=== PATIENT | female | born 1965 | race Caucasian/White ===

== ENCOUNTER 2016-06-14 08:40 | Inpatient (IN) | payer OTHER ==
[~2016-06-14] VITALS: Ht 162.6 cm; Wt 72.6 kg
[2016-06-14] VITALS (9 sets, daily range): BP systolic 93–116; BP diastolic 46–78
[2016-06-14] MEDS ORDERED: Bacitracin 50000 Units Vial ONE (10:17)
--- NOTE | 2016-06-14 12:02 | Diagnostic Imaging Report ---
Indications: hip pain Findings: Two views of the left hip were obtained. There is deformity of the left femoral head with subchondral collapse. This may be on the basis of underlying AVM. There is no femoral neck fracture or malalignment. Impression: Deformity of the left femoral head probably on the basis of AVM or trauma.
[2016-06-14] MEDS ORDERED: MOVANTIK25 MG PO (12:06)
[2016-06-14] MEDS ORDERED: OXYCODONE-ACET1 EAC3 ORAL (12:06)
[2016-06-14] MEDS ORDERED: ZIPSOR25 MG ORAL (12:08)
[2016-06-14] MEDS ORDERED: Morphine Sulfate PF 10 ML ONE (12:27)
[2016-06-14] MEDS ORDERED: Ropivacaine 5mg/ml Vial 20ml INJ ONE (12:28)
[2016-06-14] MEDS ORDERED: LYRICA100 MG ORAL (12:28)
[2016-06-14] MEDS ORDERED: Bupivacaine 0.5% Inj 30 ml vial INJ ONE (12:28)
[2016-06-14] MEDS ORDERED: CYMBALTA60 MG ORAL (12:29)
[2016-06-14] MEDS ORDERED: METAXALONE800 MG PO (12:30)
[2016-06-14] MEDS ORDERED: [UNRECOGNIZED DRUG - OTHER] PO (12:31)
[2016-06-14] MEDS ORDERED: LANSOPRAZOLE15 MG ORAL (12:36)
[2016-06-14] MEDS ORDERED: MELATONIN2.5 MG ORAL (12:37)
[2016-06-14] MEDS ORDERED: LR 1000ml ONE (12:50)
[2016-06-14] MEDS ORDERED: NS Irrig 1000ml ONE (12:50)
[2016-06-14] MEDS ORDERED: Succinylcholine 20mg/ml 10ml vial ONE (12:50)
[2016-06-14] MEDS ORDERED: Dexamethasone 4mg/ml vial ONE (12:50)
[2016-06-14] MEDS ORDERED: Propofol 10mg/ml 20ml IV ONE ×2 (12:50)
[2016-06-14] MEDS ORDERED: Sterile Water Irrig 1000ml IRRIG ONE (12:50)
[2016-06-14] MEDS ORDERED: Metoprolol 5mg/5ml Inj ONE (12:50)
[2016-06-14] MEDS ORDERED: Alfentanil 2ml Inj ONE (12:50)
[2016-06-14] MEDS ORDERED: Midazolam 2mg/2ml Inj ONE (12:50)
--- NOTE | 2016-06-14 12:56 | Anethesia Preoperative Eval ---
Anesthesia Pre-op PMH/ROS General Date of Evaluation: Jun 14, 2016 Time of Evaluation: 12:51 Anesthesiologist: Janee ASA Score: ASA 2 Mallampati Score Class I : Soft palate, uvula, fauces, pillars visible Class II: Soft palate, uvula, fauces visible Class III: Soft palate, base of uvula visible Class IV: Only hard plate visible Mallampati Classification: Class II Surgeon: Irving Diagnosis: L Hip AVN Surgical Procedure: L Total Hip Replacement Anesthesia History: none Family History: no anesthesia problems Allergies: Coded Allergies: ADHESIVE TAPE (Verified Allergy, Intermediate, itch; redness, 06/14/16) MEPERIDINE (Verified Allergy, Intermediate, rash; itch, 06/14/16) Medications: see eMAR Past Medical History Cardiovascular: Reports: other - MVP Gastrointestinal/Genitourinary: Reports: GERD Neurologic/Psychiatric: Reports: depression/anxiety Musculoskeletal/Integumentary: Reports: other - AVN, L Hip PSxH Narrative: Andry WILSON Arthroscopy Anesthesia Pre-op Phys. Exam Physician Exam Last Vital Signs Date Time Temp Pulse Resp B/P Pulse Ox O2 Delivery O2 Flow Rate FiO2 06/14/16 11:40 97.8 77 18 112/78 100 Room Air Constitutional: NAD Neurologic: CN 2-12 intact Cardiovascular: RRR Respiratory: CTA Gastrointestinal: S/NT/ND Airway Exam Mallampati Score: Class II MO: full ROM: full Teeth: intact Anesthesia Pre-op A/P Labs Urine Test Test 06/14/16 10:45 Urine HCG, Qualitative Negative Risk Assessment & Plan Assessment: ASA 2 Plan: GA, Spinal, LPB, BIS Status Change Before Surgery: No Pre-Antibiotics Dru Grams Ancef IV Given Within 1 Hr of Incision: Yes Time Given: 12:18 Carter Weller MD Jun 14, 2016 12:56
--- NOTE | 2016-06-14 12:57 | Immediate Post-Op Evaluation ---
Immediate Post-Op Evalulation Immediate Post-Op Evalulation Procedure: L THR Date of Evaluation: Jun 14, 2016 Time of Evaluation: 15:12 IV Fluids: 900 LR Blood Products: 0 Estimated Blood Loss: 25 Urinary Output: 50 Blood Pressure Systolic: 98 Blood Pressure Diastolic: 61 Pulse Rate: 90 Respiratory Rate: 16 O2 Sat by Pulse Oximetry: 97 Temperature (Fahrenheit): 98.2 Pain Score (1-10): 0 Nausea: No Vomiting: No Complications 0 Patient Status: awake, reacts, patent, none Hydration Status: adequate Dru Grams Ancef IV Given Within 1 Hr of Incision: Yes Time Given: 12:18 Carter Weller MD Jun 14, 2016 12:57
[2016-06-14] MEDS ORDERED: LR 1000ml 1,000 ML IVLG SCH (12:59)
[2016-06-14] MEDS ORDERED: Atropine Inj 1mg/10ml Syr IV PRN (13:00)
[2016-06-14] MEDS ORDERED: Midazolam 2mg/2ml Inj IVP PRN (13:00)
[2016-06-14] MEDS ORDERED: Metoclopramide 10mg/2ml Inj IVP PRN (13:00)
[2016-06-14] MEDS ORDERED: Norco 7.5mg/325mg tab ORAL PRN (13:00)
[2016-06-14] MEDS ORDERED: Hydromorphone 0.5mg/0.5ml inj IVP PRN (13:00)
[2016-06-14] MEDS ORDERED: Ketorolac 60mg Inj IV PRN (13:00)
[2016-06-14] MEDS ORDERED: Ketorolac 30mg Inj IV PRN (13:00)
[2016-06-14] MEDS ORDERED: Labetalol 5mg/ml 20ml vial IV PRN (13:00)
[2016-06-14] MEDS ORDERED: Norco 5mg/325mg tab ORAL PRN (13:00)
[2016-06-14] MEDS ORDERED: LORazepam Inj 2mg/ml 1ml IV PRN (13:00)
[2016-06-14] MEDS ORDERED: DiphenhydrAMINE 50mg/ml Inj IVP PRN (13:00)
[2016-06-14] MEDS ORDERED: NS Irrig 1000ml IRRIG ONE (13:00)
[2016-06-14] MEDS ORDERED: Oxycodone/Acetaminophen 5-325 ORAL PRN (13:00)
--- NOTE | 2016-06-14 13:02 | Pre-Procedure Note/Attestation ---
Pre-Procedure Note/Attestation Complete Prior to Procedure Planned Procedure: left Procedure Narrative: left hip bipolar versus total hip replacement Indications for Procedure Pre-Operative Diagnosis: left hip anv Attestation I attest that I discussed the nature of the procedure; its benefits; risks and complications; and alternatives (and the risks and benefits of such alternatives ), prior to the procedure, with the patient (or the patient's legal career services representative). I attest that, if there was a reasonable possibility of needing a blood transfusion, the patient (or the patient's legal career services representative) was given the [facility] standardized written summary, pursuant to the Richard Wilmer Blood Safety Act ([place] Health and Safety Code # 1645, as amended). I attest that I re-evaluated the patient just prior to the surgery and that there has been no change in the patient's H&P, except as documented below: LIT ARGUETA Jun 14, 2016 13:02
[2016-06-14] MEDS ORDERED: Morphine Sulfate 4mg/ml Inj IVP PRN (13:15)
[2016-06-14] MEDS ORDERED: Morphine Sulfate 2mg/ml Inj IVP PRN (13:15)
[2016-06-14] MEDS ORDERED: Tranexamic Acid 1,000 MG in NS 65 ML IVPB ONE (13:30)
[2016-06-14] MEDS ORDERED: D5 1/2NS w/KCl 20mEq 1,000 ML IV SCH (19:00)
[2016-06-14] MEDS: ceFAZolin sod 1 GM in D5W 55 ML IV SCH (20:48)
[2016-06-14] MEDS: Morphine Sulfate 2mg/ml Inj IVP PRN (20:50)
[2016-06-15] MEDS: Morphine Sulfate 2mg/ml Inj IVP PRN ×2 (00:09→07:07)
[2016-06-15 00:25] VITALS: BP 106/71
[2016-06-15 04:00] VITALS: BP 93/62
[2016-06-15] MEDS: ceFAZolin sod 1 GM in D5W 55 ML IV SCH (05:00)
[2016-06-15 06:11] LABS: MEAN CORPUSCULAR HEMOGLOBIN 31.8 PG (27.0-31.0); MEAN CORPUSCULAR HGB CONC 33.2 G/DL (32.0-36.0); MEAN CORPUSCULAR VOLUME 96 FL (80-99); MEAN PLATELET VOLUME 9.2 FL (6.5-10.1); PLATELET COUNT 246 K/UL (150-450); RED BLOOD COUNT 3.79 M/UL (4.20-5.40); RED CELL DISTRIBUTION WIDTH 11.9 % (11.6-14.8); WHITE BLOOD COUNT 11.2 K/UL (4.8-10.8)
[2016-06-15 06:59] LABS: ANION GAP 15 (5-15); CALCIUM 9.3 mg/dL (8.6-10.2); CARBON DIOXIDE 25 mEQ/L (20-30); CHLORIDE 99 mEQ/L (98-107); CREATININE 0.8 mg/dL (0.5-0.9); GLOMERULAR FILTRATION RATE > 60 mL/min (>60); HEMOLYSIS 8; POTASSIUM 4.4 mEQ/L (3.4-4.9); SODIUM 139 mEQ/L (135-145)
--- NOTE | 2016-06-15 07:48 | 48 Hour Post Anesthesia Eval ---
Post Anesthesia Evaluation Procedure: L THR Date of Evaluation: Jun 15, 2016 Time of Evaluation: 07:01 Blood Pressure Systolic: 92 0: 61 Pulse Rate: 83 Respiratory Rate: 18 Temperature (Fahrenheit): 97.5 O2 Sat by Pulse Oximetry: 96 Airway: patent Nausea: No Vomiting: No Pain Intensity: 1 Hydration Status: adequate Cardiopulmonary Status: Stable Mental Status/LOC: patient returned to baseline Follow-up Care/Observations: 0 Post-Anesthesia Complications: 0 Follow-up care needed: N/A Carter Weller MD Jun 15, 2016 07:48
[2016-06-15 08:06] VITALS: BP 94/65
--- NOTE | 2016-06-15 08:26 | Diagnostic Imaging Report ---
Indication: pain Findings: Single AP view of the pelvis was performed. Lower pelvic radiograph showing left hip replacement. This appears to be a bipolar hemiarthroplasty. No issues with positioning of the hardware identified. No fracture identified. Tyler catheter noted. Impression: Status post left hip replacement.
[2016-06-15] MEDS: Enoxaparin 40mg Inj SUBQ SCH (08:43)
[2016-06-15] MEDS: Norco 7.5mg/325mg tab ORAL PRN ×2 (15:45→20:47)
[2016-06-15] MEDS ORDERED: Influenza Virus Vaccine 0.5ml IM ONE (16:00)
[2016-06-15 16:38] VITALS: BP 126/75
[2016-06-15 20:00] VITALS: BP 108/63
[2016-06-16] MEDS: Norco 7.5mg/325mg tab ORAL PRN ×6 (00:59→20:58)
[2016-06-16 01:00] VITALS: BP 115/69
[2016-06-16 04:00] VITALS: BP 115/70
[2016-06-16 05:25] LABS: BASOPHILS % (AUTO) 0.6 % (0.0-2.0); EOSINOPHILS % (AUTO) 0.3 % (0.0-3.0); LYMPHOCYTES % (AUTO) 29.3 % (20.0-45.0); MEAN CORPUSCULAR HEMOGLOBIN 31.9 PG (27.0-31.0); MEAN CORPUSCULAR HGB CONC 33.6 G/DL (32.0-36.0); MEAN CORPUSCULAR VOLUME 95 FL (80-99); MEAN PLATELET VOLUME 9.1 FL (6.5-10.1); MONOCYTES % (AUTO) 7.6 % (1.0-10.0); NEUTROPHILS % (AUTO) 62.1 % (45.0-75.0); PLATELET COUNT 219 K/UL (150-450); RED BLOOD COUNT 3.59 M/UL (4.20-5.40); RED CELL DISTRIBUTION WIDTH 11.8 % (11.6-14.8); WHITE BLOOD COUNT 8.6 K/UL (4.8-10.8)
[2016-06-16 05:51] LABS: ANION GAP 13 (5-15); CALCIUM 8.8 mg/dL (8.6-10.2); CARBON DIOXIDE 25 mEQ/L (20-30); CHLORIDE 105 mEQ/L (98-107); CREATININE 0.9 mg/dL (0.5-0.9); GLOMERULAR FILTRATION RATE > 60 mL/min (>60); HEMOLYSIS 5; POTASSIUM 3.9 mEQ/L (3.4-4.9); SODIUM 143 mEQ/L (135-145)
[2016-06-16 08:09] VITALS: BP 107/67
[2016-06-16] MEDS: Enoxaparin 40mg Inj SUBQ SCH (08:48)
--- NOTE | 2016-06-16 09:26 | General Progress Note ---
Progress Note Progress Note doing great OLD HIP PAIN gone explained did a partial as she had good cartilage explain if every needs conversion to total simple Hgb stable nruovascular intact pt pleased NVI continue LIT Suazo Jun 16, 2016 09:26
[2016-06-16 12:00] VITALS: BP 109/67
[2016-06-16 16:00] VITALS: BP 121/79
--- NOTE | 2016-06-16 16:49 | General Progress Note ---
Assessment/Plan Assessment/Plan hip surgery hip pain PLAN 1. incentive spirometry 2. Lovenox 3. PT evaluation and therapy 4. Hydration 5. Pain management 6. discharge once stable with outpatient follow up Subjective Allergies: Coded Allergies: ADHESIVE TAPE (Verified Allergy, Intermediate, itch; redness, 06/14/16) MEPERIDINE (Verified Allergy, Intermediate, rash; itch, 06/14/16) Subjective asked to follow up post op Objective Last 24 Hour Vital Signs Date Time Temp Pulse Resp B/P Pulse Ox O2 Delivery O2 Flow Rate FiO2 06/16/16 16:00 99.0 91 20 121/79 100 Room Air 06/16/16 14:10 98.2 06/16/16 12:00 98.2 93 19 109/67 97 Room Air 06/16/16 08:09 98.1 86 20 107/67 94 Room Air 06/16/16 04:00 98.2 84 18 115/70 95 Room Air 06/16/16 01:00 99.0 86 18 115/69 97 Room Air 06/15/16 20:00 98.4 93 18 108/63 98 Room Air Intake and Output 06/15/16 06/16/16 19:00 07:00 Intake Total 480 ml 480 ml Output Total 600 ml 250 ml Balance -120 ml 230 ml Intake Oral 480 ml 480 ml Output Urine Total 600 ml 250 ml # Voids 2 2 Laboratory Tests 06/16/16 04:20: White Blood Count 8.6, Red Blood Count 3.59L, Hemoglobin 11.5L, Hematocrit 34.1L , Mean Corpuscular Volume 95, Mean Corpuscular Hemoglobin 31.9H, Mean Corpuscular Hemoglobin Concent 33.6, Red Cell Distribution Width 11.8, Platelet Count 219, Mean Platelet Volume 9.1, Neutrophils (%) (Auto) 62.1, Lymphocytes (% ) (Auto) 29.3, Monocytes (%) (Auto) 7.6, Eosinophils (%) (Auto) 0.3, Basophils ( %) (Auto) 0.6, Sodium Level 143, Potassium Level 3.9, Chloride Level 105, Carbon Dioxide Level 25, Anion Gap 13, Blood Urea Nitrogen 10, Creatinine 0.9, Estimat Glomerular Filtration Rate > 60, Glucose Level 100, Calcium Level 8.8 Height (Feet): 5 Height (Inches): 4.00 Weight (Pounds): 160 Objective WDWN NAD clear breath sounds bilaterally without rhonchi or wheeze [id number] without MRG NABS nontender no HSM no CCE nonfocal MARIZA GOODMAN Jun 16, 2016 16:49
[2016-06-16 20:00] VITALS: BP 112/75
[2016-06-17] VITALS: BP 112/73
[2016-06-17] MEDS: Norco 7.5mg/325mg tab ORAL PRN ×3 (01:24→10:57)
[2016-06-17 04:00] VITALS: BP 123/88
[2016-06-17 07:54] LABS: BASOPHILS % (AUTO) 1.2 % (0.0-2.0); EOSINOPHILS % (AUTO) 0.7 % (0.0-3.0); LYMPHOCYTES % (AUTO) 31.2 % (20.0-45.0); MEAN CORPUSCULAR HEMOGLOBIN 31.8 PG (27.0-31.0); MEAN CORPUSCULAR HGB CONC 33.2 G/DL (32.0-36.0); MEAN CORPUSCULAR VOLUME 96 FL (80-99); MEAN PLATELET VOLUME 8.4 FL (6.5-10.1); MONOCYTES % (AUTO) 7.5 % (1.0-10.0); NEUTROPHILS % (AUTO) 59.4 % (45.0-75.0); PLATELET COUNT 248 K/UL (150-450); RED BLOOD COUNT 4.06 M/UL (4.20-5.40); WHITE BLOOD COUNT 7.5 K/UL (4.8-10.8)
[2016-06-17 08:21] VITALS: BP 126/80
[2016-06-17 08:22] LABS: ANION GAP 17 (5-15); CALCIUM 9.7 mg/dL (8.6-10.2); CARBON DIOXIDE 25 mEQ/L (20-30); CHLORIDE 102 mEQ/L (98-107); CREATININE 0.8 mg/dL (0.5-0.9); GLOMERULAR FILTRATION RATE > 60 mL/min (>60); HEMOLYSIS 1; POTASSIUM 3.6 mEQ/L (3.4-4.9); SODIUM 144 mEQ/L (135-145)
[2016-06-17] MEDS: Enoxaparin 40mg Inj SUBQ SCH (08:23)
--- NOTE | 2016-06-17 08:55 | General Progress Note ---
Assessment/Plan Assessment/Plan hip surgery hip pain PLAN 1. incentive spirometry 2. Xarelto 10mg x 14 days 3. PT evaluation and therapy 4. PO norco on dc 5. Pain management 6. discharge home Subjective Allergies: Coded Allergies: ADHESIVE TAPE (Verified Allergy, Intermediate, itch; redness, 06/14/16) MEPERIDINE (Verified Allergy, Intermediate, rash; itch, 06/14/16) Subjective stable and would like to go home Objective Last 24 Hour Vital Signs Date Time Temp Pulse Resp B/P Pulse Ox O2 Delivery O2 Flow Rate FiO2 06/17/16 08:23 98.0 06/17/16 08:21 98.0 90 20 126/80 98 Room Air 06/17/16 04:00 98.8 96 20 123/88 99 Room Air 06/17/16 00:00 99.0 84 20 112/73 99 Room Air 06/16/16 20:00 98.6 88 20 112/75 98 Room Air 06/16/16 16:00 99.0 91 20 121/79 100 Room Air 06/16/16 12:00 98.2 93 19 109/67 97 Room Air Intake and Output 06/16/16 06/17/16 19:00 07:00 Intake Total 720 ml 480 ml Balance 720 ml 480 ml Intake Oral 720 ml 480 ml # Voids 1 3 Laboratory Tests 06/17/16 07:10: White Blood Count 7.5, Red Blood Count 4.06L, Hemoglobin 12.9, Hematocrit 38.9, Mean Corpuscular Volume 96, Mean Corpuscular Hemoglobin 31.8H, Mean Corpuscular Hemoglobin Concent 33.2, Red Cell Distribution Width 12.0, Platelet Count 248, Mean Platelet Volume 8.4, Neutrophils (%) (Auto) 59.4, Lymphocytes (%) (Auto) 31.2, Monocytes (%) (Auto) 7.5, Eosinophils (%) (Auto) 0.7, Basophils (%) (Auto ) 1.2, Sodium Level 144, Potassium Level 3.6, Chloride Level 102, Carbon Dioxide Level 25, Anion Gap 17H, Blood Urea Nitrogen 7, Creatinine 0.8, Estimat Glomerular Filtration Rate > 60, Glucose Level 99, Calcium Level 9.7 Height (Feet): 5 Height (Inches): 4.00 Weight (Pounds): 160 Objective WDWN NAD clear breath sounds bilaterally without rhonchi or wheeze [id number] without MRG NABS nontender no HSM no CCE nonfocal MARIZA GOODMAN Jun 17, 2016 08:55
[2016-06-17] MEDS ORDERED: NS 275ml ONE (10:59)
[2016-06-19] MEDS ORDERED: XARELTO10 MG ORAL (10:04)
--- NOTE | 2016-06-19 10:08 | Operative Note - Dictated ---
DATE OF OPERATION: 06/14/2016 [address]ILITY: [facility]. PREOPERATIVE DIAGNOSIS: Left hip avascular necrosis with collapse. POSTOPERATIVE DIAGNOSIS: Left hip avascular necrosis with collapse. PROCEDURE: Left bipolar hip replacement with Modifier 22 secondary to difficulty due to young age. SURGEON: Jerald Villatoro M.D. SPA ASSOCIATE: Unknown. WINDER OPERATOR: Deny Omer PA-C. PREOPERATIVE NOTE: The patient is a pleasant lady who has been having issues with left hip associated with collapse as her pain has been recently increased. . We reviewed her x-rays and it appears that there was some cartilage tear. She has a dysplastic hip, it is not constrained or contained. I explained to her the surgery and risks including infection, bleeding, anesthetic risks, neurovascular damage, DVT, PE, failure of the operation, leg length discrepancy, mortality and morbidity from the above causes, not including the above causes. The patient agreed and consents were obtained. OR NOTE: Under the benefit of endotracheal intubation, general anesthetic and spinal anesthesia, the patient was given one gram of Ancef. The patient's hip was prepped and draped in appropriate manner. A posterolateral incision was made, incised through subcutaneous tissue down through TFL and took off the short external rotators and then identified the sciatic nerve, which was intact. Then, we proceeded to dislocate the hip and it was slightly torn. I did an osteotomy a fingerbreadth above the lesser trochanter. With her young age, I evaluated the acetabulum carefully. The labrum as well as the cartilage seemed to be intact. There were no divots. No obvious deformities. I evaluated anteriorly and posteriorly. Because of her age, I opted to go with the bipolar hemiarthroplasty, which unloads the acetabulum. I discussed this with her, advised her that at any point in the future within the next 5 to 10 years, if she does accelerate the OA, the revision and conversion , she agreed and concurred. So, I opted to go with that. I then proceeded to reaming down the canal with 10 degrees of anteversion. We started with 0, 1, 1, and 2. Settled with 2 stem. The #2 stem seemed to be perfect. I placed the 43 bipolar in. We had . . Then I irrigated the wound copiously, closing the capsule after placing the actual prosthesis in. Standard was done within the hip, closed the capsule, and I reinforced the labrum. We closed the TFL with #1 Vicryl, subcutaneous tissue with 2-0 Vicryl, and skin with fer. The patient had full stability anteriorly and posteriorly with no dislocation. Leg lengths were equal in accordance to Dr. Brandin Hagen leg length method. There were no complications. EBL was minimal. Jerald Villatoro M.D. DR: TEN JOB#: [id number] CC:
--- NOTE | 2016-06-19 10:25 | Discharge Summary ---
Discharge Summary Hospital Course Date of Admission Jun 14, 2016 at 10:02 Date of Discharge Jun 17, 2016 at 11:00 Admitting Diagnosis left hip avascular necrosis Reason for Hospitalization: Patient with history of left hip avascular necrosis HPI Veena Márquez , 51 year old female , admitted on Jun 14, 2016 at 10:02 for Lt Hip Avascular Necrosis, Osteoarthritis, constant left hip pain for elective surgery - left hip regalement Consultations dr Martinez IM Procedures 06/14- left hip bipolar versus total hip replacement by LIT Leon ( partial done) Hospital Course patient was admitted for elective surgery - left hop replacement 2 to left hip avascular necrosis s/p partial left hip replacement 06/14 course of recovery uneventful neurovascular intact surgery followed pain management a/coagulation with Xarelto, continue x 14 more days upon dc fall precautions PT/OT IS DISCHARGE DIAGNOSIS left hip avascular necrosis s/p left hip replacement postoperative pain Discharge Medications New Medications: Rivaroxaban (Xarelto*) 10 Mg Tablet 10 MG ORAL DAILY, #14 TAB 0 Refills Continued Medications: Diclofenac Potassium (Zipsor) 25 Mg Capsule 25 MG ORAL TID PRN for For Pain, CAP Duloxetine Hcl* (Cymbalta*) 60 Mg Capsule. 60 MG ORAL TID, CAP Lansoprazole* (Lansoprazole*) 15 Mg Capsule.dr 15 MG ORAL DAILY, CAP Melatonin (Melatonin) 2.5 Mg Tab.chew 2.5 MG ORAL BEDTIME PRN for Insomnia, TAB Metaxalone (Metaxalone) 800 Mg Tablet 1200 MG PO DAILY, TAB Naloxegol Oxalate (Movantik) 25 Mg Tablet 25 MG PO DAILY, TAB Pregabalin (Lyrica) 100 Mg Capsule 100 MG ORAL THREE TIMES A DAY, CAP [oraciea] () 40 MG PO DAILY Discontinued Medications: Oxycodone Hcl/Acetaminophen 5-325* (Oxycodone-Acetaminophen 5-325*) 1 Each Tablet 1 TAB ORAL Q6H PRN for For Pain, #30 TAB 0 Refills Discharge Condition Upon Discharge: stable Discharge Disposition Patient was discharged to Home with Home Health(06) Discharge Diagnoses: Discharge Instructions Discharge Instructions Special Instructions I have been assigned to complete a D/C Summary on this account. I was not involved in the patient management Kenzie Banks NP (Vanchtein) Jun 19, 2016 10:25
== END 2016-06-17 11:00 | disposition home health service (06) | DRG 470 ==
LOC: SDSOVERFLO 10:02 → 3E 16:55
PROC: 0SRS0JZ Replacement of Left Hip Joint, Femoral Surface with Synthetic Substitute, Open Approach (ICD-10-PCS; principal; 2016-06-14 12:30)
DX: M87.852 Other osteonecrosis, left femur (principal); F32.9 Major depressive disorder, single episode, unspecified; K21.9 Gastro-esophageal reflux disease without esophagitis; M51.36 Other intervertebral disc degeneration, lumbar region; I34.1 Nonrheumatic mitral (valve) prolapse; M19.90 Unspecified osteoarthritis, unspecified site
CPT/HCPCS: 36415; 72170; 73502; 80048; 81025; 85025; 85610; 85730; 86850; 86900; 86901; 86920; 87081; 94003; 94150; J2250; J2405; J3490; Q2036